=== PATIENT | female | born 1960 ===

== ENCOUNTER 2025-01-23 11:00 | Observation (INO) ==
[2025-01-23 11:43] LABS: MEAN PLATELET VOLUME 9.3 fL (7.9-10.8); NRBC ABSOLUTE COUNT (AUTO) 0.09 x10^3/uL; NUCLEATED RED BLOOD CELLS AUTO 0.9 /100WBC; PLT - PLATELET COUNT 339 10^3/uL (130-450); RED CELL DISTRIBUTION WIDTH 17.2 % (12.0-15.0)
[2025-01-23 11:45] LABS: HCT - HEMATOCRIT 15.9 % (37.0-47.0); HGB - HEMOGLOBIN 5.1 g/dL (12.0-16.0)
[2025-01-23 11:46] LABS: OCCULT BLOOD,URINE LARGE (NEGATIVE)
[2025-01-23 11:47] LABS: GLUCOSE, URINE (UA) NEGATIVE (NEGATIVE); KETONES,URINE (UA) NEGATIVE (NEGATIVE)
[2025-01-23 11:57] LABS: ALT ALANINE AMINOTRANSFERASE 30.0 IU/L (10-60); AST ASPARTATE AMINOTRANSFERASE 16.0 IU/L (10-42); BUN - BLOOD UREA NITROGEN 16.0 mg/dL (6-20); CARBON DIOXIDE - CO2 25.0 mmol/L (21-32); CREATININE 0.8 mg/dL (0.6-1.3); GFR - MDRD 72.0 (>89)
[2025-01-23 11:57] LABS: SQUAMOUS EPITHELIAL CELL,UR NONE SEEN (<= Few)
[2025-01-23] MEDS: ONDANSETRON 4 MG/2 ML VIAL IVP STA (12:46)
[2025-01-23 13:01] LABS: INR 1.1 (0.8-1.2); PT - PROTHROMBIN TIME 12.2 secs (9.9-12.6)
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
--- NOTE | 2025-01-23 17:23 | CT Report ---
EXAM: CT Angio Abdomen/Pelvis DATE: 01/23/2025 12:38 PM PDT INDICATION: 64 years Female with Gi bleed TECHNIQUE: Using MDCT technique, axial images were obtained through the abdomen and pelvis, from the bases of the lungs through the pubic symphysis, before and after the intravenous administration of contrast. Sagittal and coronal MPR reconstructions were performed. Scan was performed in compliance with NEMA XR 29-213 Dose Limiting Standard. In accordance with CT protocol optimization, one or more of the following dose reduction techniques were utilized for this exam: automated exposure control, adjustment of mA and/or KV based on patient size, or use of iterative reconstructive technique. LIMITATION: None. CONTRAST: 100 cc Omnipaque 350 PROTOCOL: Unenhanced, arterial phase and venous phase images COMPARISON: 12/03/2024 FINDINGS: Lung bases and visualized mediastinum: No significant focal lesion seen. Liver: No significant focal lesion seen. Spleen: No significant focal lesion seen. Pancreas: No significant focal lesion seen. Gallbladder and bile ducts: There is no significant biliary dilatation postcholecystectomy. Adrenal glands: No significant focal lesion seen. Kidneys and ureters: There has been near complete resolution of previously seen large calculus on the right, with residual stone fragments measuring up to 6 mm. There is mild right hydronephrosis, with urothelial thickening in the right renal pelvis and right ureter. No new calculi seen on the left GI tract, mesentery, and peritoneum: There is no ascites. No bowel dilatation. No areas of abnormal contrast accumulation or other focal lesion. Upper abdomen and retroperitoneal spaces: No significant adenopathy or other mass seen. Vascular structures: The abdominal aorta, major visceral branches and iliac arteries are normal in caliber. Urinary bladder: No significant focal lesion seen. Reproductive organs: The uterus and adnexal regions are unremarkable. Inguinal regions and abdominal wall: No hernia or other significant focal lesion seen. Osseous structures: No significant focal lesion seen. IMPRESSION: 1. No signs of active GI bleeding at this time. If there is a possibility of intermittent GI bleeding, adequate assessment can be performed with bleeding scan. 2. Near complete resolution of right renal calculi, with possible associated ascending urinary tract infection on the right, with right ureteritis and right pyelitis. No ureteral calculi seen. Reviewed by: Eric Carlton MD on 01/23/2025 5:20 PM PDT Approved by: Eric Carlton MD on 01/23/2025 5:20 PM PDT Station ID: [id number]
--- NOTE | 2025-01-23 18:11 | HISTORY & PHYSICAL EXAMINATION ---
Chief Complaint Chief Complaint Chief Complaint: weak and dizzy History of Present Illness Admitted From Admitted From:: home History Obtained From Records Reviewed: ED notes History obtained from: Patient and at bedside. History of Present Illness HPI Comment/Other: 64F with HTN who presents to the ED feeling weak. She has been having bloody stools since 01/21. She has had several syncopal episodes at home. She has been feeling weak, tired and cold. She recently had urological surgery, she had a large staghorn calculus. This was about 10 days ago. This was a stent placement. It has been progressively easier for her to pass her urine since that time, and she is doing well from that account. She denies fevers. She still is having occasional burning with urination. She took 2 [id number] doses of ibuprofen last week for postoperative discomfort but otherwise has been using Tylenol at home. She is normally on lisinopril 10 mg a day but she did not take that because her blood pressure has been low at home and she has been feeling poorly. She has not had any vomiting. She is not have any abdominal pain. Her her last colonoscopy was 8 to 9 years ago in [place] and she states that it was normal. It was done as a screening colonoscopy. Most recent bloody stool was after arriving to the ED today. The stools she is having are dark with clots. This has been happening for 2 days now, intermittently. She lives with her , they are healthy and active. 2 sons who live in [place]. They are able to meet all needs themselves. Meds/Allgy Home Medications Ambulatory Orders Medication Instructions Recorded Confirmed lisinopril 10 mg tablet 10 mg PO QDAY 11/30/2401/23 multivitamin 1 tab PO QDAY 11/30/2401/23 Allergies Allergies Allergy/AdvReac Type Severity Reaction Status Date / Time No Known Drug Allergies Allergy Verified 01/23/25 11:13 PFSH Active Problems All Active Problems (Updated 01/23/25 @ 17:39 by José Miguel Carmona MD) GI bleed (Acute) Staghorn calculus (Acute) Acute pyelonephritis (Acute) Medical History Medical History (Updated 01/23/25 @ 17:39 by José Miguel Carmona MD) Hypertension Surgical History Surgical History History of cholecystectomy Social History Social History (Updated 12/21/24 @ 11:48 by Nargis Garcia RN) Smoking Status: Never smoker How many days per week?: 4 Do you feel safe in your home environment?: Yes History of physical, verbal, emotional, or financial abuse?: No Frequency: Weekly Number of days/week: 3 Substance Use: denies use POLST Patient has POLST: No Review of Systems Status of ROS: 10 or more systems reviewed and unremarkable except as noted in history and below Prior Level of Functionality: Independent. Lives with her . Exam Exam Vital Signs: Vital Signs x48h Temp Pulse Pulse Resp BP BP Pulse Ox 01/23/25 18:57 37.3 C 83 20 106/68 99 01/23/25 18:51 85 26 H 104/65 99 01/23/25 18:46 85 22 102/67 99 01/23/25 18:41 83 18 122/67 99 01/23/25 18:36 82 23 107/70 99 01/23/25 18:31 83 21 99/65 99 01/23/25 18:26 84 28 H 104/73 99 01/23/25 18:21 82 20 109/67 99 01/23/25 18:16 84 17 104/60 99 01/23/25 18:11 93 19 104/70 99 01/23/25 18:06 86 25 H 108/69 99 01/23/25 18:01 85 17 111/69 100 01/23/25 17:56 92 19 109/75 100 01/23/25 17:51 83 17 112/70 100 01/23/25 17:46 86 21 113/76 99 01/23/25 17:41 86 22 110/76 100 01/23/25 17:35 85 18 110/74 95 01/23/25 17:30 86 13 109/84 100 01/23/25 17:25 85 20 104/68 100 01/23/25 17:20 82 24 108/67 100 01/23/25 17:16 83 17 109/75 100 01/23/25 17:10 83 23 111/71 100 01/23/25 17:05 84 21 108/68 100 01/23/25 17:00 82 24 106/76 100 01/23/25 16:55 87 19 97/68 100 01/23/25 16:50 84 21 103/62 100 01/23/25 16:45 87 19 102/65 100 01/23/25 16:41 85 29 H 103/70 100 01/23/25 16:41 37.3 C 86 20 102/70 100 01/23/25 16:40 87 33 H 100 01/23/25 16:24 85 99 01/23/25 16:23 83 22 101/65 100 01/23/25 16:18 80 27 H 115/76 98 01/23/25 16:13 83 14 119/71 99 01/23/25 16:08 83 23 121/71 100 01/23/25 16:03 91 17 130/65 100 01/23/25 15:57 98 24 104/62 99 01/23/25 15:53 89 21 102/65 99 01/23/25 15:47 88 22 101/55 L 100 01/23/25 15:43 91 22 108/58 L 100 01/23/25 15:38 37.2 C 94 22 108/58 L 100 01/23/25 15:37 91 30 H 98/71 100 01/23/25 15:32 91 16 94/60 100 01/23/25 15:27 90 22 101/59 L 100 01/23/25 15:26 37 C 93 28 H 92/59 L 100 01/23/25 15:25 37 C 93 28 H 92/59 L 100 01/23/25 15:22 88 26 H 92/59 L 99 01/23/25 15:22 85 19 92/59 L 100 01/23/25 15:17 85 19 95/56 L 100 01/23/25 15:12 87 21 95/59 L 100 01/23/25 15:10 37 C 87 16 93/61 100 01/23/25 15:07 85 17 93/61 99 01/23/25 15:02 86 18 96/59 L 99 01/23/25 14:57 85 17 99/61 100 01/23/25 14:52 87 17 90/55 L 100 01/23/25 14:47 85 16 91/58 L 100 01/23/25 14:42 84 18 95/57 L 100 01/23/25 14:37 86 19 98/55 L 100 01/23/25 14:32 86 18 98/58 L 100 01/23/25 14:27 87 23 93/54 L 100 01/23/25 14:22 88 18 97/57 L 100 01/23/25 14:17 89 19 94/56 L 100 01/23/25 14:12 87 18 90/55 L 100 01/23/25 14:07 88 23 92/55 L 100 01/23/25 14:02 92 25 H 89/54 L 100 01/23/25 13:57 90 27 H 85/53 L 100 01/23/25 13:56 36.2 C L 92 30 H 85/53 L 100 01/23/25 13:52 91 20 88/55 L 95 01/23/25 13:47 90 29 H 87/53 L 100 01/23/25 13:43 95/57 L 01/23/25 13:42 93 22 96/57 L 100 01/23/25 13:39 37.2 C 12 86/49 L 100 01/23/25 13:37 92 19 86/49 L 99 01/23/25 13:32 88 22 84/56 L 100 01/23/25 13:27 91 19 86/51 L 100 01/23/25 13:22 91 18 91/55 L 99 01/23/25 13:17 93 27 H 89/59 L 100 01/23/25 13:12 93 25 H 96/59 L 98 01/23/25 13:07 95 18 92/58 L 100 01/23/25 13:02 91 29 H 83/59 L 98 01/23/25 12:55 97 30 H 100 01/23/25 12:52 92 23 93/60 100 01/23/25 12:47 97 26 H 92/53 L 99 01/23/25 12:42 96 40 H 125/68 100 01/23/25 12:42 123 H 36 H 125/68 100 01/23/25 12:30 16 01/23/25 11:03 37.3 C 95 17 112/70 100 O2 Flow Rate 01/23/25 18:57 01/23/25 18:51 01/23/25 18:46 01/23/25 18:41 01/23/25 18:36 01/23/25 18:31 01/23/25 18:26 01/23/25 18:21 01/23/25 18:16 01/23/25 18:11 01/23/25 18:06 01/23/25 18:01 01/23/25 17:56 01/23/25 17:51 01/23/25 17:46 01/23/25 17:41 01/23/25 17:35 01/23/25 17:30 01/23/25 17:25 01/23/25 17:20 01/23/25 17:16 01/23/25 17:10 01/23/25 17:05 01/23/25 17:00 01/23/25 16:55 01/23/25 16:50 01/23/25 16:45 01/23/25 16:41 01/23/25 16:41 01/23/25 16:40 01/23/25 16:24 01/23/25 16:23 01/23/25 16:18 01/23/25 16:13 01/23/25 16:08 01/23/25 16:03 01/23/25 15:57 01/23/25 15:53 01/23/25 15:47 01/23/25 15:43 01/23/25 15:38 01/23/25 15:37 01/23/25 15:32 01/23/25 15:27 01/23/25 15:26 01/23/25 15:25 01/23/25 15:22 01/23/25 15:22 0 01/23/25 15:17 01/23/25 15:12 01/23/25 15:10 01/23/25 15:07 01/23/25 15:02 01/23/25 14:57 01/23/25 14:52 01/23/25 14:47 01/23/25 14:42 01/23/25 14:37 01/23/25 14:32 01/23/25 14:27 01/23/25 14:22 01/23/25 14:17 01/23/25 14:12 01/23/25 14:07 01/23/25 14:02 01/23/25 13:57 01/23/25 13:56 01/23/25 13:52 01/23/25 13:47 01/23/25 13:43 01/23/25 13:42 01/23/25 13:39 01/23/25 13:37 01/23/25 13:32 01/23/25 13:27 01/23/25 13:22 01/23/25 13:17 01/23/25 13:12 01/23/25 13:07 01/23/25 13:02 01/23/25 12:55 01/23/25 12:52 01/23/25 12:47 01/23/25 12:42 01/23/25 12:42 01/23/25 12:30 01/23/25 11:03 Constitutional normal general appearance and no apparent distress Well-groomed HENMT normocephalic and oral mucous membranes normal Eyes conjunctivae normal Neck/C-Spine visual inspection normal and trachea midline Lymph no lymphadenopathy noted Chest inspection of chest normal Respiratory breath sounds equal bilaterally, normal respiratory effort and clear to auscultation bilaterally Cardiovascular normal heart rate noted Not tachycardic. She has had some hypotension, as low as 84/56 in the emergency department Gastrointestinal abdomen soft to palpation and nontender to palpation Genitourinary clear urine in the pure wick canister at the bedside. Extremities normal to inspection Neurology assurance manager insurance II-XII intact and GCS 15 Psychiatry oriented x3, thought process normal, cooperative and affect normal Skin skin color normal Conclusion/Plan Problem List (1) GI bleed: Plan: This patient presents with a 3-day history of bright red blood per rectum. She states that at home she has had several syncopal episodes and is noticed that her blood pressure is low at home. She has not been taking her blood pressure medicine at home. She states that she did pass out 2 nights ago. She notes blood in her stool with watery stool passing clots and the blood appears rather dark but not black. She had been constipated after leaving the hospital after a procedure 10 days ago but that has all changed with the hinduism of this bleeding. CTA of the abdomen is negative for any acute bleeding. Hemoglobin upon presentation is 5.1. The patient is hypotensive and not tachycardic. She is not on any beta-blockers at home. This patient was given 2 units of blood in the emergency department. Repeat hemoglobin after 2 units of blood is 7.7 from a baseline of 5.1. This patient was discussed with Dr. Desir in the emergency department. Will admit her to observation status and trend her hemoglobin every 8 hours. I will give her clear liquids to drink. I have discussed this patient with Dr. Jarvis of surgery and he favors serial hemoglobin and watchful waiting. (2) Staghorn calculus: Plan: Recent procedure at [facility] with admission about 10 days ago where stent was placed and removed. She has been recovering at home from that. She is not having any gross hematuria, although she certainly does have microscopic hematuria on her urinalysis today. CTA of the abdomen and pelvis is significant for what is described as near complete resolution of previously seen large calculus on the right with residual stone fragments measuring up to 6 mm there is mild right hydronephrosis with urothelial thickening in the right renal pelvis and right ureter. No new calculi seen on the left. This patient has a normal white count of 10.3. She is not running fevers. She does not have any flank pain. She does not have any abdominal pain. Her urinalysis is significant for a large amount of occult blood trace amount of leukocyte esterase and 6-10 RBCs per high-powered field. Cultures have been sent. I do not believe this patient needs antibiotics for potential urinary tract infection. I would however recommend following her white blood cell count and her urine cultures. Urine cultures are pending, I have ordered repeat CBC for the a.m. (3) Hypertension: Plan: Hx of this, resume lisinopril when appropriate. Plan I have spent 78 minutes in the care of this patient today. This includes time [id number], review and ordering of diagnostic imaging and laboratory studies and consultation with other providers. Monitoring the patient's signs symptoms, evaluation of medication effectiveness and patient's response to treatment. Lab Results 01/23/25 17:55 01/23/25 11:33 Diagnostic Imaging Results Diagnostic Imaging Results Comments: CTA suggestive of some inflammation in the right kidney and ureter. Other findings not suggestive of infection. No acute bleed seen on CTA Core Measures Anticipated LOS I expect patient to be DC'd or transferred within 96 hours.: Yes DVT/VTE - Prophylaxis VTE/DVT Device ordered at admit?: Yes VTE/DVT Prophylaxis med ordered at admit?: No Not Ordered - Medical Reason: Contraindicated (GI bleed)
[2025-01-23] MEDS ORDERED: ACETAMINOPHEN 325 MG TABLET PO PRN (19:03)
[2025-01-23] MEDS ORDERED: SODIUM CHLORIDE FLUSH 0.9% 10 ML SYRINGE IVP PRN (19:03)
[2025-01-23] MEDS ORDERED: ONDANSETRON 4 MG/2 ML VIAL IVP PRN (19:03)
[2025-01-24] MEDS: SODIUM CHLORIDE FLUSH 0.9% 10 ML SYRINGE IVP SCH
[2025-01-24 06:36] LABS: HCT - HEMATOCRIT 21.1 % (37.0-47.0); HGB - HEMOGLOBIN 7.1 g/dL (12.0-16.0); MEAN PLATELET VOLUME 9.6 fL (7.9-10.8); NRBC ABSOLUTE COUNT (AUTO) 0.11 x10^3/uL; NUCLEATED RED BLOOD CELLS AUTO 1.4 /100WBC; PLT - PLATELET COUNT 245 10^3/uL (130-450); RED CELL DISTRIBUTION WIDTH 16.7 % (12.0-15.0)
[2025-01-24 06:54] LABS: BUN - BLOOD UREA NITROGEN 14.0 mg/dL (6-20); CARBON DIOXIDE - CO2 26.0 mmol/L (21-32); CREATININE 0.7 mg/dL (0.6-1.3); GFR - MDRD 85.0 (>89)
[2025-01-24] MEDS ORDERED: LACTATED RINGERS 1,000 ML ONE (08:49)
--- NOTE | 2025-01-24 08:56 | PROVIDER PROGRESS NOTE ---
Progress Note Progress Note Progress Note: General Surgery Consultation Note Assessment: 1) Acute blood loss anemia - suspect UGI source Recommendation: 1) RL at 50 ml/hr 2) Continue PPI 3) EGD this morning 4) Transfuse additional (3rd) unit of blood Consent: EGD Genet has been counseled for the procedure (EGD [], it's indications, risks, benefits and expected outcome as well as alternative therapies. We specifically discussed risks associated with anesthesia and insertion of the endoscope into the UGI tract which includes bleeding and/or injury to the esophagus which may require surgical intervention. Active, uncontrollable bleeding from the ulcer site will require exploratory laparotomy. Genet understands, agrees, and consents to the proposed operative strategy and requests that we proceed with the procedure as outlined in our discussion. <><><><><><><><><><> Reason for Consultation I am requested by the Medical Hospitalist Service to provide consultation for: acute blood loss anemia CASIMIRO De León is a 64 year old female who has been undergoing treatment at for a right staghorn calculi. Her lithotrypsy procedure was performed 10-14 days ago after which she managed her post op pain and inflammation with Ibuprofen alternating with Tylenol. Last Wednesday she had her stent removed and afterwards noticed midepigastric abdominal pain. On Wednesday she started to pass melenic (dark stools - see photograph from ) and then yesterday she became syncopal and her brought her into the ED for evaluation. She was found to be hypotensive (systolic ~80's) and anemic (H&H 5/15). She was admitted the the Medical Hospiatlist Service and transfused 2 units of PRBC and started on IV PPI. Since admission she has been hemodynamically stable with a systolic BP >100 and a normal pulse. She has not passed further melena. Her H&H this morning is 7.1/21. The patient denies recent lower GI problems such as bleeding or diarrhea. Her last colonoscopy was 9 years ago and she does not remember being told she had diverticulosis, polyps, or angiodysplasia. Past Medical History HTN Past Surgical History Cholecystectomy Social History - -Cig; -ETOH Current Medications Lisinopril, Multivits Allergies NKDA ROS Pertinent positives Melena, no nausea or emesis All other reviewed systems negative Physical Examination Vital Signs: BP 106/70; P 78; RR 18; T 36.6 BMI: 23 GENERAL APPEARANCE: Normal development, normal body habitus, normal grooming PSYCHIATRIC: AAO; Comfortable; in NAD EYES: Pupils equal, round and reactive to light, sclera anicteric EARS, NOSE, MOUTH, THROAT: Hearing normal, Oral mucous membranes moist and without lesions; NECK: No crepitus, lymphadenopathy, or thyromegaly LUNGS: Clear to auscultation without wheezing; No use of accessory muscles to breathe CARDIOVASCULAR: Heart-NSR without murmurs; Palpable carotid arteries; Peripheral edema absent ABD: Soft, not distended, no tenderness LYMPHATIC: Neck, Axillae, Groin no palpable adenopathy EXTREMITIES: No clubbing, cyanosis, infections SKIN: Anicteric; No rashes, lesions, Ulcerations Labs WBC 7.6; Hgb 7.1; Hct 21.1 Antibiotics: None VTEP: [facility] N/A Vinod Jarvis MD, FACS General Surgery Service [phone]
--- NOTE | 2025-01-24 10:03 | PROVIDER PROGRESS NOTE ---
Subjective Prog Note Date Prog Note Date: 01/24/25 Prog Note Time: 09:52 Subjective Subjective: 64F with PMF of HTN admitted to observation for a possible GI bleed. She has had bloody stools since 01/21 accompanied with weakness, cold intolerance, and malaise which caused her to have multiple syncopal episodes at home. She has not been complaint with her blood pressure medication at home. More recent visit to the hospital was 11 days ago, she was here for urological surgery to remove staghorn calculus and since then was constipated. Current Medications Current Medications Current Medications: Current Medications Generic Name Dose Route Start Last Admin Trade Name Freq PRN Reason Stop Dose Admin Acetaminophen 650 mg 01/23/25 19:03 Acetaminophen 325 Mg Tablet PO Q4HR PRN Pain 1 to 4, or Fever Lactated Ringer's 1,000 mls @ 50 mls/hr 01/24/25 09:00 Lr IV .Q20H PIERRE Ondansetron HCl 4 mg 01/23/25 19:03 Ondansetron 4 Mg/2 Ml Vial IVP Q6HR PRN Nausea / Vomiting Sodium Chloride 10 ml 01/23/25 19:03 Sodium Chloride Flush 0.9% 10 Ml Syringe IVP PRN PRN NEEDED PER PROVIDER ORDERS Sodium Chloride 10 ml 01/24/25 01:00 01/24/25 08:46 Sodium Chloride Flush 0.9% 10 Ml Syringe IVP 10 ml 0100,0900,1700 PIERRE Administration Objective Vital Signs/Intake & Output Reviewed Vital Signs: Yes Vital Signs: Vital Signs x48h Temp Pulse Resp BP Pulse Ox 01/24/25 05:00 36.6 C 78 18 106/70 99 Intake & Output: Intake & Output 01/21/25 01/22/25 01/23/25 01/24/25 23:59 23:59 23:59 23:59 Intake Total 600 / 600 500 / 500 Output Total 800 / 800 Balance -200 / -200 500 / 500 Weight (kg) 58 kg Lab Results 01/24/25 06:07 01/24/25 06:07 Other Labs: Lab Results x24hrs 01/24/25 01/24/25 01/23/25 Range/Units 06:07 02:07 17:55 WBC 7.6 (4.8-10.8) x10^3/uL RBC 2.29 L (4.20-5.40) 10^6/uL Hgb 7.1 L 7.2 L 7.7 L (12.0-16.0) g/dL Hct 21.1 L (37.0-47.0) % MCV 92.1 (81.0-99.0) fL MCH 31.0 (27.0-31.0) pg MCHC 33.6 (32.0-36.0) g/dL RDW 16.7 H (12.0-15.0) % Plt Count 245 (130-450) 10^3/uL MPV 9.6 (7.9-10.8) fL Neut # (Auto) 5.3 (1.5-6.6) 10^3/uL Lymph # (Auto) 1.6 (1.5-3.5) 10^3/uL [place] # (Auto) 0.4 (0.0-1.0) 10^3/uL Eos # (Auto) 0.1 (0.0-0.7) 10^3/uL Baso # (Auto) 0.0 (0.0-0.1) 10^3/uL Absolute Nucleated RBC 0.11 x10^3/uL Nucleated RBC % 1.4 /100WBC PT (9.9-12.6) secs INR (0.8-1.2) APTT (24.9-33.3) secs Sodium 135 (135-145) mmol/L Potassium 3.9 (3.5-4.5) mmol/L Chloride 105 (101-111) mmol/L Carbon Dioxide 26 (21-32) mmol/L Anion Gap 4.0 L (6-13) BUN 14 (6-20) mg/dL Creatinine 0.7 (0.6-1.3) mg/dL Estimated GFR (MDRD) 85 L (>89) Glucose 101 (74-104) mg/dL Calcium 9.0 (8.5-10.3) mg/dL Total Bilirubin (0.2-1.0) mg/dL AST (10-42) IU/L ALT (10-60) IU/L Alkaline Phosphatase (42-121) IU/L Total Protein (6.4-8.9) g/dL Albumin (3.2-5.5) g/dL Globulin (2.1-4.2) g/dL Albumin/Globulin Ratio (1.0-2.2) Lipase (11-82) U/L Urine Color Urine Clarity (CLEAR) Urine pH (5.0-7.5) PH Ur Specific [place] (1.002-1.030) Urine Protein (NEGATIVE) mg/dL Urine Glucose (UA) (NEGATIVE) mg/dL Urine Ketones (NEGATIVE) mg/dL Urine Occult Blood (NEGATIVE) Urine Nitrite (NEGATIVE) Urine Bilirubin (NEGATIVE) Urine Urobilinogen (NORMAL) E.U./dL Ur Leukocyte Esterase (NEGATIVE) Urine RBC (0-5) /HPF Urine WBC (0-5) /HPF Ur Squamous Epith Cells (<= Few) Urine Bacteria (None Seen) /HPF Ur Microscopic Review Urine Culture Comments Blood Type Blood Type Recheck Antibody Screen Crossmatch IS Only 01/23/25 01/23/25 01/23/25 Range/Units 12:37 11:33 11:10 WBC 10.3 (4.8-10.8) x10^3/uL RBC 1.73 L (4.20-5.40) 10^6/uL Hgb 5.1 L* (12.0-16.0) g/dL Hct 15.9 L* (37.0-47.0) % MCV 91.9 (81.0-99.0) fL MCH 29.5 (27.0-31.0) pg MCHC 32.1 (32.0-36.0) g/dL RDW 17.2 H (12.0-15.0) % Plt Count 339 (130-450) 10^3/uL MPV 9.3 (7.9-10.8) fL Neut # (Auto) 6.7 H (1.5-6.6) 10^3/uL Lymph # (Auto) 2.9 (1.5-3.5) 10^3/uL [place] # (Auto) 0.4 (0.0-1.0) 10^3/uL Eos # (Auto) 0.1 (0.0-0.7) 10^3/uL Baso # (Auto) 0.0 (0.0-0.1) 10^3/uL Absolute Nucleated RBC 0.09 x10^3/uL Nucleated RBC % 0.9 /100WBC PT 12.2 (9.9-12.6) secs INR 1.1 (0.8-1.2) APTT 30.4 (24.9-33.3) secs Sodium 133 L (135-145) mmol/L Potassium 4.2 (3.5-4.5) mmol/L Chloride 102 (101-111) mmol/L Carbon Dioxide 25 (21-32) mmol/L Anion Gap 6.0 (6-13) BUN 16 (6-20) mg/dL Creatinine 0.8 (0.6-1.3) mg/dL Estimated GFR (MDRD) 72 L (>89) Glucose 111 H (74-104) mg/dL Calcium 9.3 (8.5-10.3) mg/dL Total Bilirubin 0.3 (0.2-1.0) mg/dL AST 16 (10-42) IU/L ALT 30 (10-60) IU/L Alkaline Phosphatase 96 (42-121) IU/L Total Protein 6.0 L (6.4-8.9) g/dL Albumin 3.3 (3.2-5.5) g/dL Globulin 2.7 (2.1-4.2) g/dL Albumin/Globulin Ratio 1.2 (1.0-2.2) Lipase 59 (11-82) U/L Urine Color YELLOW Urine Clarity CLEAR (CLEAR) Urine pH 6.5 (5.0-7.5) PH Ur Specific [place] 1.010 (1.002-1.030) Urine Protein NEGATIVE (NEGATIVE) mg/dL Urine Glucose (UA) NEGATIVE (NEGATIVE) mg/dL Urine Ketones NEGATIVE (NEGATIVE) mg/dL Urine Occult Blood LARGE H (NEGATIVE) Urine Nitrite NEGATIVE (NEGATIVE) Urine Bilirubin NEGATIVE (NEGATIVE) Urine Urobilinogen 0.2 (NORMAL) (NORMAL) E.U./dL Ur Leukocyte Esterase TRACE H (NEGATIVE) Urine RBC 6-10 H (0-5) /HPF Urine WBC 0-3 (0-5) /HPF Ur Squamous Epith Cells NONE SEEN (<= Few) Urine Bacteria Few (None Seen) /HPF Ur Microscopic Review INDICATED Urine Culture Comments INDICATED Blood Type O POSITIVE Blood Type Recheck O POSITIVE Antibody Screen NEGATIVE Crossmatch IS Only See Detail ABX Reporting Has patient been on IV antibiotics over the past 48 hours?: No Assessment/Plan Problem List (1) GI bleed: Impression: Patient was given 2 units of blood in the ER last night and had initial Hgb 7.7 after the infusion. Since last night patient Hgb has decreased to 7.1. EGD is scheduled today with Dr. Jarvis, she was given an additional unit of blood prior to procedure. EGD revealed UGI bleed from 4 superficial duodenal ulcers with no active bleeding. Antral biopsy was taken for HP testing. - Mylanta 30ml PO q hour for 48h - Carafate PO QID for 7 days - PPI x 6 wks - Avoid NSAIDS (2) Staghorn calculus: Impression: CTA of abdomen/pelvis showed no signs of active GI bleeding but could not rule out the possibility of intermittent GI bleeding. It also noted near complete resolution of right renal calculi, with possible associated ascending urinary tract infection on the right, with right ureteritis and right pyelitis. No ureteral calculi seen. WBCs are 7.6 down from 10.3 and UA cultures are still negative (1x day). No current concern for UTI as previously considered.
[2025-01-24] MEDS: LACTATED RINGERS 1,000 ML IV SCH (10:57)
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
[2025-01-24] MEDS ORDERED: LIDOCAINE-PF 2% 10 ML AMP SUBQ ONE (13:53)
[2025-01-24] MEDS ORDERED: PROPOFOL 500 MG/50 ML 500 MG/50 ML VIAL ONE (13:53)
--- NOTE | 2025-01-24 14:28 | PROVIDER PROGRESS NOTE ---
Progress Note Progress Note Progress Note: General Surgery Brief Procedure Note (see "Provation" for details) Preop Diagnosis: UGI bleed Postop Diagnosis: UGI bleed from 34 superficial duodenal ulcers. No active bleeding or need for hemostatic maneuvers Procedure: EGD with Antral biopsy for HP testing Recommendation: 1) Mylanta 30 ml POQ^H x 48 hours 2) Carafate PO QID for 7 ways 3) PPI x 6 weeks 4) Avoid NSAIDS Vinod Jarvis MD, FACS General Surgery Service
--- NOTE | 2025-01-24 14:48 | PHARMACY PROGRESS NOTE ---
Best Possible Medication History Admit Date and Time: 01/23/25 1756 Home Medications Medication Instructions Recorded Confirmed Type lisinopril 10 mg tablet 10 mg PO DAILY 11/30/2412/11 History multivitamin 1 tab PO DAILY 11/30/2412/11 History Processed by: Pharmacy Medications reviewed in ED?: No Medication History completed: Yes Patient Interview: Pt unable to participate Secondary Source(s): Spouse/Significant other and Insurance records [facility] Statement: As the person ultimately responsible for medication therapy, providers are able to order a medication from an existing home medication list in [facility] via the "Reconcile Routine" prior to Confirmation of that medication by technical support agent. Such practice is discouraged except when the physician, in their clinical judgment, deems that a medical need exists for a medication without regard to previous use.
[2025-01-24 15:17] LABS: HCT - HEMATOCRIT 25.2 % (37.0-47.0); HGB - HEMOGLOBIN 8.4 g/dL (12.0-16.0)
--- NOTE | 2025-01-24 15:23 | Discharge Summary ---
"<Statement entered by Gianfranco Wing DNP - 01/24/25 20:59> Patient was seen and examined by me with a separate encounter after being seen by JAMILA student. I reviewed the student's documentation including patient history, physical examination, laboratory, imaging, clinical assessment and treatment plan. I have discussed the management of the patient with the student, and with the patient. There are no changes. Patient admitted for upper GI bleed, underwent upper endoscopy which revealed nonbleeding ulcers. Patient is being discharged on PPI, Carafate, Maalox Discharge Summary Admit Date: 01/23/25 Discharge Date: 01/24/25 Code Status: Attempt Resuscitation DIAGNOSES Admission Diagnoses: Gastrointestional hemorrhage Discharge Diagnoses with Status of Each Condition: Gastrointestional hemorrhage - Resolved Calculus of kidney - Resolved Essential (primary) hypertension - Longstanding, patient is on lisinopril HPI History of Present Illness: Genet Richter is a 64F with PMF of HTN admitted to observation for a possible GI bleed. She has had bloody stools since 01/21 accompanied with weakness, cold intolerance, and malaise which caused her to have multiple syncopal episodes at home. She has not been complaint with her blood pressure medication at home. Her last bout of melena was yesterday at home, since then patient has not had any melena. Her most recent visit to the hospital was 11 days ago, she was here for urological surgery to remove staghorn calculus and since then was constipated. CONSULTS | PROCEDURES Consultations: Surgery Procedures: Upper GI Endoscopy HOSPITAL COURSE Hospital Course: Patient was admitted to observation for possible GI bleed. HPI was significant for epigastric pain with melena since 01/21. Her chief complaint was accompanied but weakness, malaise, with multiple syncopal events at home. In the ED she received 2 units of blood and her Hgb went from 5.1 to 7.7. Overnight the patient went from Hgb 7.1 down from 7.7 possibly indicating at active bleed. CT abdomen/pelvis was did not correlate an active bleed but it did not rule out possibility of intermittent GI bleeding. Surgery was consulted to an Upper GI endoscopy. Prior to procedure she was given 1 unit of blood. Upper GI endoscopy revealed 4 superficial ulcers in the 1st portion of the duodenum. There was no evidence of current bleeding. Patient was recommended medication from surgeon to support healing of the ulcers and placed on a clear fluid diet for 24h. Current Hgb 8.4 Hct 25.2. Patient was given first dose of medications [place] their [place] meds prior to closing. Discussed with patient medications and to schedule follow up with PCP. ALLERGIES Allergies Allergy/AdvReac Type Severity Reaction Status Date / Time No Known Drug Allergies Allergy Verified 01/23/25 11:13 MEDICATIONS Ambulatory Orders Medication Instructions Recorded Confirmed lisinopril 10 mg tablet 10 mg PO DAILY 11/30/2412/11 multivitamin 1 tab PO DAILY 11/30/2412/11 aluminum-mag hydroxide-simethicone 30 ml PO Q4HR 2 day s #360 mL 01/24/25 200 mg-200 mg-20 mg/5 mL oral susp (Mag-Al Plus) omeprazole 40 mg capsule,delayed 40 mg PO DAILY #30 ca ps 01/24/25 release sucralfate 100 mg/mL oral 1 g (10 mL) PO 0700,1100,160 0,2200 01/24/25 suspension 7 days #280 mL PHYSICAL EXAM AT DISCHARGE Vital Signs: Vital Signs x48h Temp Pulse Pulse Resp BP Pulse Ox 01/24/25 18:48 36.6 C 78 18 113/75 98 01/24/25 18:48 36.6 C 78 18 113/75 98 01/24/25 16:19 36.6 C 77 22 100/66 97 01/24/25 15:38 36.6 C 72 16 112/70 98 01/24/25 15:08 36.6 C 77 24 115/77 99 01/24/25 14:46 73 101/69 100 01/24/25 14:31 73 110/66 99 01/24/25 14:20 36.3 C L 79 28 H 96/60 99 01/24/25 13:15 37.1 C 77 18 117/77 98 General Appearance: positive No acute distress and Alert Eyes Bilateral: positive Normal inspection, PERRL and EOMI ENT: positive ENT inspection nml and No signs of dehydration Neck: positive Nml inspection, No JVD and Trachea midline Respiratory: positive Chest non-tender, No respiratory distress and Breath sounds nml Cardiovascular: positive Regular rate & rhythm, No murmur and No gallop Abdomen: positive Non-tender, No organomegaly, Nml bowel sounds and No distention Skin: positive Color nml, No rash, Warm and Dry Extremities: positive Non-tender, Full ROM, Nml appearance and No pedal edema Neurologic/Psychiatric: positive Oriented x3, Motor nml, Sensation nml and Mood/affect nml LABS 01/24/25 15:12 01/24/25 06:07 TIME SPENT Time Spent in Discharge (Minutes): 38 Discharge Plan Discharge Patient Disposition: Home, Self Care Condition: Stable Medically Cleared Date:: 01/24/25 Prescriptions: New alum-mag hydroxide-simeth [Mag-Al Plus] 200-200-20 mg/5 mL Suspension 30 ml PO Q4HR 2 Days Qty: 360 0RF sucralfate 100 mg/mL Suspension 1 g PO 0700,1100,1600,2200 7 Days Qty: 280 0RF omeprazole 40 mg capsule,delayed release(DR/EC) 40 mg PO DAILY Qty: 30 2RF Continued lisinopril 10 mg tablet 10 mg PO DAILY multivitamin Tablet 1 tab PO DAILY Diet: Soft Interventions: Belongings Inventory Last Done: 01/23/25 20:34 Discharge Last Done: 01/24/25 18:48 Discharge Checklist - Nursing Last Done: 01/24/25 18:48 Discharge Vital Signs (30 Minutes) Last Done: 01/24/25 18:48 Health Concerns: You were brought into the hospital because you were concerned about recent bleeding in your stool. Because you lost a significant amount of blood your levels of hemoglobin were lower making you have the feelings of weakness, malaise, as well as possibly explaining your episodes of fainting while at home. In order to correct this we gave you 2 units of blood and your levels increased, however, overnight your levels dropped a little bit and we were concerned for an active bleed in your abdomen. Surgery was consulted to perform an upper gi endoscopy, in where we use a camera to get a real picture of inside your body. The surgeon noted that you have 4 ulcers, that may have caused the bleeding, right now they are currently not bleeding. Since then your blood hemoglobin levels have gone up and will continue to do so slowly. We will send you home with some medications that will help allow your ulcers to heal in order to prevent them from causing more damage. You will be getting the following medications recommended by the surgeon please take as directed. I also want you to avoid taking any NSAIDs as these have the potential to develop future ulcerations or make them worse. Tonight you will be on a clear liquid diet for the next 24 hours and after that I want you to start eating soft foods that are low in fiber and progress as you feel better. You may experience some remaining dark stool from what was left over in your body, this is expected. However, if you are continuing to have dark blood in your stool or any bleeding in your stool with similar symptoms of weakness or fainting come back to the hospital. I want you to follow up with your PCP when you are able. Print Language: Burmese Patient Instructions: Surg Dc Stand Alone Forms: PCP List Follow-up Care: EDNA HILLIARD FNP [Primary Care Provider, Family Nurse Practitioner] Vitals documented within 30 minutes of discharge?: Yes"
[2025-01-24 16:08] VITALS: TEMP 97.9
[2025-01-24] MEDS: SUCRALFATE 1 GM/10 ML UDC PO SCH (16:13)
--- NOTE | 2025-01-24 16:39 | ANESTHESIA POST OP EVALUATION ---
Anesthesia Post Eval Post Anesthesia Eval Vitals: Last Vital Signs Temp 36.6 C 01/24/25 16:19 Pulse 77 01/24/25 16:19 Resp 22 01/24/25 16:19 BP 100/66 01/24/25 16:19 Pulse Ox 97 01/24/25 16:19 O2 Flow Rate 0 01/23/25 15:22 CV Function Including HR & BP: Stable Pain Control: Satisfactory Nausea & Vomiting: Negative Mental Status: Baseline Respiratory Status: Airway Patent Hydration Status: Satisfactory Anesthesia Complications: None
[2025-01-24] MEDS: PANTOPRAZOLE 40 MG TABLET PO STA (16:58)
[2025-01-24] MEDS: MAG HYDROX/AL HYDROX/SIMETH 30 ML UDC PO SCH (16:59)
[2025-01-24] MEDS ORDERED: MAG HYDROX/AL HYDROX/SIMETH 30 ML UDC PO SCH (17:00)
[2025-01-24 18:49] VITALS: BP 113/75; O2SAT 98
== END 2025-01-24 19:15 | disposition home or self-care (01) ==
LOC: ED 11:00 → MS2 11:00
PROVIDERS: ADMIT Physician Assistant Medical; ATTEND Physician Assistant Medical